=== PATIENT | female | born 1980 | race American Indian/Alaskan Native ===

== ENCOUNTER 2017-10-16 07:29 | Observation (INO) | payer OTHER ==
[2017-10-16 09:12] LABS: Basophils # (Auto) 0.1 K/mm3 (0.0-0.1); Basophils % (Auto) 0.6 % (0.0-1.8); Eosinophils # (Auto) 0.1 K/mm3 (0.0-0.4); Eosinophils % (Auto) 0.9 % (0.0-4.3); Hematocrit 20.5 % (30.3-42.9); Hemoglobin 6.5 gm/dl (10.1-14.3); Lymphocytes # (Auto) 3.4 K/mm3 (1.2-5.4); Lymphocytes % (Auto) 26.6 % (13.4-35.0); Mean Corpuscular HGB Conc 32 % (30-34); Mean Corpuscular Hemoglobin 28 pg (28-32); Mean Corpuscular Volume 89 fl (79-97); Monocytes # (Auto) 0.7 K/mm3 (0.0-0.8); Monocytes % (Auto) 5.3 % (0.0-7.3); Platelet Count 313 K/mm3 (140-440); Red Blood Count 2.31 M/mm3 (3.65-5.03); Red Cell Distribution Width 18.7 % (13.2-15.2)
[2017-10-16] MEDS ORDERED: NACL 0.9% 1000 ML 1,000 ML IV ONE (13:01)
[2017-10-16] MEDS ORDERED: NACL 0.9% 500 ML 500 ML IV ONE ×2 (13:01→23:13)
[2017-10-16 13:28] LABS: BUN/Creatinine Ratio 16; Blood Urea Nitrogen 13 mg/dL (7-17); Hemolysis Index 4
--- NOTE | 2017-10-16 15:00 | Emergency Department Report ---
HPI - General Chief Complaint: Vaginal Bleeding Time Seen by Provider: 10/16/17 13:01 - HPI HPI: The patient is a 37-year-old female with a significant history of uterine fibroids, presents for evaluation of abdominal pain, vaginal bleeding, and weakness. The patient reports greater than 2 weeks of continuous vaginal bleeding. For the past 3 days she has experienced constant abdominal pain, crampy in quality, mild in severity, and associated with mild to moderate generalized weakness worsened with exertion or activity. She says her vaginal bleeding significantly worsened over the past one to 2 days. The patient denies fever, trauma to the abdomen or pelvis, chest pain, dyspnea, syncope, hemoptysis , rectal bleeding, hematemesis, hematuria, epistaxis, easy bruising or bleeding , or blood thinner use. ED Past Medical Hx - Past Medical History Previous Medical History?: Yes Hx Hypertension: Yes Additional medical history: h/o fibroids - Surgical History Past Surgical History?: No - Social History Smoking Status: Never Smoker Substance Use Type: None - Medications Home Medications: Home Medications Medication Instructions Recorded Confirmed Last Taken Type Ferrous Sulfate [Iron] 325 mg PO DAILY 10/16/17 10/16/17 10/15/17 History Lisinopril/Hydrochlorothiazide 1 tab PO DAILY 10/16/17 10/16/17 10/15/17 History medroxyPROGESTERone ACETATE 10 mg PO DAILY 10/16/17 10/16/17 10/15/17 History [Medroxyprogesterone Acetate] ED Review of Systems ROS: Stated complaint: WEAKNESS Other details as noted in HPI Constitutional: denies: fever ENT: denies: throat or neck pain Respiratory: denies: cough, shortness of breath Cardiovascular: denies: chest pain Endocrine: denies unexplained weight loss or gain Gastrointestinal: reports abdominal pain, nausea Genitourinary: reports vag bleeding denies: dysuria Musculoskeletal: denies: leg swelling Skin: denies: rash Neurological: denies: headache Hematological/Lymphatic: denies: easy bleeding or easy bruising Psych: denies sadness or hopelessness Physical Exam - Physical Exam Vital Signs: Vital Signs 10/16/17 10/16/17 10/16/17 08:34 11:56 12:33 Temperature 97.8 F Pulse Rate 98 H 100 H Respiratory 18 18 Rate Blood Pressure 122/60 118/68 Blood Pressure 96/57 [Left] O2 Sat by Pulse 100 100 Oximetry 10/16/17 10/16/17 10/16/17 12:45 12:55 12:57 Temperature 98.4 F Pulse Rate 102 H 95 H Respiratory 14 12 12 Rate Blood Pressure 118/68 Blood Pressure 122/59 [Left] O2 Sat by Pulse 100 100 Oximetry 10/16/17 10/16/17 10/16/17 13:00 13:15 13:45 Temperature Pulse Rate Respiratory 12 12 Rate Blood Pressure 120/63 90/66 147/70 Blood Pressure [Left] O2 Sat by Pulse 97 91 97 Oximetry 10/16/17 10/16/17 10/16/17 14:08 14:15 14:23 Temperature 97.5 F L 98.5 F 98.5 F Pulse Rate 97 H 92 H 106 H Respiratory 14 16 20 Rate Blood Pressure 144/81 138/79 125/74 Blood Pressure [Left] O2 Sat by Pulse 100 100 100 Oximetry Physical Exam: General: well-nourished, well-developed, no acute distress Head: Normocephalic, atraumatic Eyes: normal sclera ENT: Mucous membranes are pale and dry Neck: No neck stiffness, no cervical adenopathy Respiratory: Breath sounds equal bilaterally, no wheezing, rales, or rhonchi Cardio: S1 and S2 present, no murmurs, rubs, gallops, capillary refill is delayed Abdomen: Normoactive bowel sounds, soft abdomen, periumbilical tenderness to palpation present, no rigidity, no guarding or rebound tenderness Chest WALL/Back: No tenderness to palpation of the chest wall, no CVA tenderness with percussion Musc: No pitting edema Skin: No rash Neuro: no facial drooping, normal speech Psych: Normal affect ED Course Vital Signs 10/16/17 10/16/17 10/16/17 08:34 11:56 12:33 Temperature 97.8 F Pulse Rate 98 H 100 H Respiratory 18 18 Rate Blood Pressure 122/60 118/68 Blood Pressure 96/57 [Left] O2 Sat by Pulse 100 100 Oximetry 10/16/17 10/16/17 10/16/17 12:45 12:55 12:57 Temperature 98.4 F Pulse Rate 102 H 95 H Respiratory 14 12 12 Rate Blood Pressure 118/68 Blood Pressure 122/59 [Left] O2 Sat by Pulse 100 100 Oximetry 10/16/17 10/16/17 10/16/17 13:00 13:15 13:45 Temperature Pulse Rate Respiratory 12 12 Rate Blood Pressure 120/63 90/66 147/70 Blood Pressure [Left] O2 Sat by Pulse 97 91 97 Oximetry 10/16/17 10/16/17 10/16/17 14:08 14:15 14:23 Temperature 97.5 F L 98.5 F 98.5 F Pulse Rate 97 H 92 H 106 H Respiratory 14 16 20 Rate Blood Pressure 144/81 138/79 125/74 Blood Pressure [Left] O2 Sat by Pulse 100 100 100 Oximetry ED Medical Decision Making - Lab Data Result diagrams: 10/16/17 08:53 10/16/17 13:07 - Medical Decision Making The patient was seen and examined by myself. The patient is placed on a systems administration analyst and continuous pulse ox. On initial evaluation, the patient was found to be in no distress. Evaluation orders were placed. 1 L normal saline fluid bolus and pain medicines ordered for the patient. Lab results reveal severely low hemoglobin of 6.5 and hematocrit 20, with normal platelet levels. As the patient is found to have severe anemia and is tachycardic, she'll be transfused PRBCs. One urint packed Blood cells are ordered for transfusion for treatment of the patient's anemia and weakness. Dr. Mitchell the patient's hospital television rental clerk was contacted. He agreed to admit the patient. The ED admit order was placed and the patient was admitted in guarded condition. Critical care attestation.: If time is entered above; I have spent that time in minutes in the direct care of this critically ill patient, excluding procedure time. ED Disposition Clinical Impression: Anemia requiring transfusions, Severe anemia, Vaginal bleeding, Generalized weakness Disposition: OP ADMIT IP TO THIS HOSP Is pt being admited?: Yes Does the pt Need Aspirin: No (actively bleeding) Condition: Serious Referrals: PRIMARY CARE, [Primary Care Provider] - 3-5 Days Time of Disposition: 15:00
[2017-10-16] MEDS ORDERED: TYLENOL #3 PO ONE (15:06)
[2017-10-16 15:11] LABS: RBC,Urine > 182.0 /HPF (0.0-6.0)
[2017-10-16 15:21] LABS: Bilirubin,Urine NEG (Negative); Blood,Urine LG (Negative); Color,Urine Red (Yellow); Urobilinogen,Urine < 2.0 mg/dL (<2.0)
[2017-10-16] MEDS ORDERED: ZOFRAN IV PRN (16:30)
--- NOTE | 2017-10-16 20:25 | History and Physical Report ---
History of Present Illness Date of examination: 10/16/17 Date of admission: 10/16/17 14:56 History of present illness: This is a 37-year-old black female para 1011 with a history of a past of leiomyomata. The patient presents to the emergency room with complaints of vomiting intermenstrual rales or stating that she had menstrual cycle starting at the end of August lasted approximately week but then returned in less than 2 weeks and has had vaginal bleeding since then. Patient states that she's had some dizziness that has been increasing over the past week and came to the emergency room due to the continued bleeding and dizziness. Patient's had symptoms previously and that require a blood transfusion. The patient workup in the emergency room was discovered that she had a hematocrit of 20. Is being admitted for blood transfusion. The patient is a very poor historian. Past History Past Medical History: anemia, hypertension, other (leiomyomata) Past Surgical History: Other (patient poor description but appears that she had endometrial ablation that she can't remember how long ago) Social history: single, full code Family history: cancer, diabetes, hypertension Medications and Allergies Allergies Allergy/AdvReac Type Severity Reaction Status Date / Time No Known Allergies Allergy Unverified 10/16/17 08:40 Home Medications Medication Instructions Recorded Confirmed Last Taken Type Ferrous Sulfate [Iron] 325 mg PO DAILY 10/16/17 10/16/17 10/15/17 History Lisinopril/Hydrochlorothiazide 1 tab PO DAILY 10/16/17 10/16/17 10/15/17 History medroxyPROGESTERone ACETATE 10 mg PO DAILY 10/16/17 10/16/17 10/15/17 History [Medroxyprogesterone Acetate] Active Meds: Active Medications Acetaminophen (Tylenol) 650 mg PO Q4H PRN PRN Reason: Pain MILD(1-3)/Fever >100.5/CHAVARRIA Docusate Sodium (Colace) 100 mg PO BID MARISA Hydrochlorothiazide (Hctz) 25 mg PO QDAY MARISA Lisinopril (Zestril) 20 mg PO QDAY MARISA Ondansetron HCl (Zofran) 4 mg IV Q8H PRN PRN Reason: Nausea And Vomiting Sodium Chloride (Sodium Chloride Flush Syringe 10 Ml) 10 ml IV BID MARISA Review of Systems All systems: negative Exam - Constitutional Vitals: Temp Pulse Resp BP Pulse Ox 99.2 F 103 H 16 126/63 100 10/16/17 17:47 10/16/17 17:47 10/16/17 17:47 10/16/17 17:47 10/16/17 17:47 General appearance: Present: no acute distress, obese - Respiratory Respiratory effort: normal - Cardiovascular Rhythm: regular - Extremities Extremities: no ischemia, No edema - Abdominal General gastrointestinal: Present: soft, non-tender, other (morbidly obese) Female genitourinary: Present: other (patient with the child with small moderate amount of blood full pelvic was deferred) - Rectal Rectal Exam: deferred - Integumentary Integumentary: Present: clear, warm, dry - Psychiatric Psychiatric: appropriate mood/affect Results - Labs CBC & Chem 7: 10/16/17 08:53 10/16/17 13:07 Labs: Abnormal lab results 10/16/17 10/16/17 10/16/17 Range/Units 08:01 08:53 13:07 WBC 12.9 H (4.5-11.0) K/mm3 RBC 2.31 L (3.65-5.03) M/mm3 Hgb 6.5 L (10.1-14.3) gm/dl Hct 20.5 L (30.3-42.9) % RDW 18.7 H (13.2-15.2) % Seg Neutrophils # 8.6 H (1.8-7.7) K/mm3 Calcium 8.0 L (8.4-10.2) mg/dL Urine pH (5.0-7.0) Urine WBC (Auto) (0.0-6.0) /HPF Crossmatch See Detail 10/16/17 Range/Units 14:08 WBC (4.5-11.0) K/mm3 RBC (3.65-5.03) M/mm3 Hgb (10.1-14.3) gm/dl Hct (30.3-42.9) % RDW (13.2-15.2) % Seg Neutrophils # (1.8-7.7) K/mm3 Calcium (8.4-10.2) mg/dL Urine pH 8.0 H (5.0-7.0) Urine WBC (Auto) 105.0 H (0.0-6.0) /HPF Crossmatch Assessment and Plan - Patient Problems (1) Intramural leiomyoma of uterus Current Visit: Yes Status: Acute Plan to address problem: Patient states had fibroids diagnosed approximately 2 years ago. At that time said they were small. This most likely etiology of her menometrorrhagia. We' ll schedule ultrasound in a.m. Did have a discussion with the patient about treatment of fibroids including uterine fibroid embolization, myomectomy and hysterectomy. All these options will be discussed further as outpatient once patient's blood count is stable. (2) Hypertension Current Visit: Yes Status: Acute Qualifiers: Hypertension type: essential hypertension Qualified Code(s): I10 - Essential (primary) hypertension (3) Anemia requiring transfusions Current Visit: Yes Status: Acute Plan to address problem: Patient received 1 unit of packed red blood cells while waiting results and H&H with the probability of a transfusion 4 units. (4) Generalized weakness Current Visit: Yes Status: Acute Plan to address problem: Probably secondary to anemia (5) Vaginal bleeding Current Visit: Yes Status: Acute (6) Menometrorrhagia Current Visit: Yes Status: Acute Plan to address problem: Probably secondary to leiomyomata. We'll treat with IV Premarin. And continue to monitor (7) Obesity due to excess calories Current Visit: Yes Status: Acute Qualifiers: Body mass index: BMI 45.0-49.9
[2017-10-16] MEDS ORDERED: PREMARIN IV NR (21:01)
[2017-10-16] MEDS ORDERED: WATER FOR INJ (PF) IV NR (21:10)
[2017-10-16 21:27] LABS: Hematocrit 21.2 % (30.3-42.9); Hemoglobin 6.9 gm/dl (10.1-14.3)
[2017-10-16] MEDS: COLACE PO SCH (21:52)
[2017-10-16] MEDS: SODIUM CHLORIDE FLUSH SYRINGE 10 ML IV SCH (22:03)
[2017-10-17] MEDS: TYLENOL PO PRN ×2 (02:24→13:10)
[2017-10-17] MEDS ORDERED: ZESTRIL PO SCH (10:00)
[2017-10-17] MEDS ORDERED: HCTZ PO SCH (10:00)
[2017-10-17] MEDS ORDERED: LISINOPRIL PO SCH (10:00)
[2017-10-17] MEDS ORDERED: HYDROCHLOROTHIAZIDE PO SCH (10:00)
[2017-10-17] MEDS: COLACE PO SCH (10:59)
[2017-10-17] MEDS: SODIUM CHLORIDE FLUSH SYRINGE 10 ML IV SCH (11:00)
--- NOTE | 2017-10-17 11:14 | Ultrasound Report ---
ULTRASOUND TRANSVAGINAL HISTORY: Uterine fibroids, pelvic pain. COMPARISON: None at this facility. TECHNIQUE: Transvaginal ultrasound with color doppler interrogation. FINDINGS: Uterus: The uterus is anteverted. The uterus is mildly enlarged measuring 11.9 x 9.0 x 9.6 cm. 3 uterine fibroids are identified. An intramural fibroid in the posterior fundus measures 3.5 x 3.3 cm. An intramural fibroid in the posterior wall measures 4.0 x 2.9 cm. A subserosal fibroid in the left lateral wall measures 4.3 x 5.7 cm. The cervix is unremarkable. Endometrium: 3 mm. No mass or fluid collection. Right ovary: Not visualized. Left ovary: Not visualized. No pelvic fluid or mass is identified. Color Doppler interrogation suggests trace perfusion to all 3 fibroids. IMPRESSION: Uterine fibroid disease as described. Normal endometrium. The ovaries are not visualized.
[2017-10-17 13:44] LABS: Hematocrit 25.5 % (30.3-42.9); Hemoglobin 8.5 gm/dl (10.1-14.3)
[2017-10-17] MEDS ORDERED: FEOSOL PO SCH (14:00)
--- NOTE | 2017-10-17 15:16 | Discharge Summary ---
Providers - Providers Date of Admission: 10/16/17 14:56 Date of discharge: 10/17/17 Attending physician: DONTA GOMEZ Primary care physician: CHEMISTRY ASSOCIATE Hospitalization Condition: Good Pertinent studies: TVUS Procedures: TVUS Hospital course: Unremarkable Disposition: [id number] TO HOME OR SELFCARE - Discharge Diagnoses (1) Anemia requiring transfusions Status: Acute (2) Hypertension Status: Acute Qualifiers: Hypertension type: essential hypertension Qualified Code(s): I10 - Essential (primary) hypertension (3) Intramural leiomyoma of uterus Status: Acute (4) Obesity due to excess calories Status: Acute Qualifiers: Body mass index: BMI 45.0-49.9 Core Measure Documentation - Palliative Care Palliative Care/ Comfort Measures: Not Applicable - Core Measures Any of the following diagnoses?: none Exam - Constitutional Vitals: Temp Pulse Resp BP Pulse Ox 98.2 F 86 16 118/73 99 10/17/17 07:11 10/17/17 07:11 10/17/17 01:32 10/17/17 10:59 10/17/17 07:11 General appearance: Present: no acute distress - Abdominal Female genitourinary: Present: normal (no active bleeding and no blood on pad) Plan Activity: other (no sex) Weight Bearing Status: Full Weight Bearing Diet: low salt Additional Instructions: Continue iron supplementation. Your prescription for Tranexamic acid has been electronically [facility] Follow up with: DONTA GOMEZ MD [Staff Physician] - 10/20/17 1:30 pm ([place]) PRIMARY MD ANDRADE [Primary Care Provider] - 3-5 Days Forms: Work/School Release Form
[2017-10-17 16:32] VITALS: BP 117/58
== END 2017-10-17 18:55 | disposition home or self-care (01) ==
LOC: ED 07:29 → INTOOBSV 14:56 → 3A 14:56
PROVIDERS: ADMIT Obstetrics & Gynecology; ATTEND Obstetrics & Gynecology
DX: D25.1 Intramural leiomyoma of uterus (principal); I10 Essential (primary) hypertension; D64.9 Anemia, unspecified; N93.9 Abnormal uterine and vaginal bleeding, unspecified; N92.1 Excessive and frequent menstruation with irregular cycle; E66.09 Other obesity due to excess calories; Z68.42 Body mass index [BMI] 45.0-49.9, adult
CPT/HCPCS: 36415; 36430; 76830; 80048; 81001; 84702; 85014; 85018; 85025; 86850; 86900; 86901; 86920; 93005; 93010; 96361; 96374; 99285; G0378; J1410; J7040; P9016; 96360